=== PATIENT | male | born 1990 | race Two or more races ===

== ENCOUNTER 2025-08-10 00:36 | Emergency (ER) | payer OTHER, SELFPAY ==
[2025-08-10 00:46] VITALS: BMI 38.9
[2025-08-10 00:50] VITALS: BP 129/79; PULSE 86; RESP 19; TEMP 36.6; O2SAT 97
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
[2025-08-10] MEDS: DIPHTH,PERTUSS(ACELL),TET VAC 0.5 ML SYR- ADULT IMi (01:24)
[2025-08-10 01:34] VITALS: BP 94/69; PULSE 94; RESP 18; O2SAT 95
== END 2025-08-10 01:35 ==
PROVIDERS: Emergency Provider Emergency Medicine
DX: S40.812A Abrasion of left upper arm, initial encounter (principal); V89.2XXA Person injured in unspecified motor-vehicle accident, traffic, initial encounter; W22.09XA Striking against other stationary object, initial encounter
CPT/HCPCS: 90471; 90715; 99283; A9270